=== PATIENT | female | born 1955 | race American Indian/Alaskan Native ===

== ENCOUNTER 2018-07-31 14:49 | Emergency (ER) | payer OTHER ==
[2018-07-31 14:57] VITALS: BP 145/90
[2018-07-31] MEDS ORDERED: IBUPROFEN PO ONE (16:17)
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
== END 2018-07-31 17:36 | disposition home or self-care (01) ==
LOC: ED 14:49
DX: S39.012A Strain of muscle, fascia and tendon of lower back, initial encounter (principal); I10 Essential (primary) hypertension; V89.2XXA Person injured in unspecified motor-vehicle accident, traffic, initial encounter; Y93.89 Activity, other specified; Y99.8 Other external cause status; Y92.89 Other specified places as the place of occurrence of the external cause
CPT/HCPCS: 72100; 99283